=== PATIENT | female | born 1970 | race African-American/Black ===

== ENCOUNTER 2024-03-03 20:36 | Inpatient (IN) | payer SELFPAY ==
[~2024-03-03] VITALS: Ht 175.3 cm; Wt 95.3 kg
[2024-03-03 21:51] LABS: CHLORIDE 107 mEq/L (98-107); POTASSIUM 3.7 mEq/L (3.5-5.1); SODIUM 141 mEq/L (136-145)
[2024-03-03 21:52] LABS: CALCIUM 9.4 mg/dL (8.7-10.4); CARBON DIOXIDE 28 mEq/L (21-32)
[2024-03-03 21:53] LABS: BASOPHILS % 0.8 % (0.0-2.0); EOSINOPHILS % 1.5 % (0.0-5.0); HCG SCREEN NEGATIVE; HEMATOCRIT. 39.6 % (36.0-48.0); HEMOGLOBIN. 13.2 g/dL (12.0-16.0); LYMPHOCYTES % 35.8 % (20.0-50.0); MEAN CORPUSCULAR HEMOGLOBIN 30.3 pg (28.0-32.0); MEAN CORPUSCULAR HGB CONC 33.4 g/dL (31.0-37.0); MEAN CORPUSCULAR VOLUME 90.7 fL (81.0-99.0); MEAN PLATELET VOLUME 7.4 fl (7.4-10.4); MONOCYTES % 11.7 % (2.0-8.0); NEUTROPHILS % 50.2 % (40.0-76.0); PLATELET 317 x1000/uL (130-400); RED BLOOD CELL COUNT 4.37 mill/uL (4.2-5.4); RED CELL DISTRIBUTION WIDTH 14.6 % (11.6-14.6); WHITE BLOOD COUNT 4.4 x1000/uL (4.5-11.0)
[2024-03-03 21:57] LABS: GLUCOSE 94 mg/dL (70-105); UREA NITROGEN BLOOD 9 mg/dL (9-23)
[2024-03-03 21:59] LABS: TROPONIN I HIGH SENSITIVITY < 4 ng/L (3.0-34)
[2024-03-04 03:33] VITALS: BP 128/75; PULSE 62; RESP 18; TEMP 36.4736
[2024-03-04 04:00] VITALS: BP 143/81; PULSE 78; RESP 20; TEMP 36.28068; O2SAT 100
[2024-03-04] MEDS ORDERED: ONDANSETRON HCL 4MG/2ML INJ IV PRN (09:45)
[2024-03-04] MEDS ORDERED: CLONIDINE 0.1MG TABLET PO PRN (09:45)
[2024-03-04] MEDS ORDERED: IPRATROPIUM/ALBUTEROL 0.5-3(2.5)MG/3ML NEB HHN PRN (09:45)
[2024-03-04] MEDS ORDERED: ACETAMINOPHEN 325MG TABLET PO PRN (09:45)
[2024-03-04] MEDS ORDERED: DIPHENHYDRAMINE 50MG/ML VIAL IV PRN (09:45)
[2024-03-04 12:00] VITALS: BP 128/83; PULSE 70; RESP 18; TEMP 36.44736; TEMP 36.50292; O2SAT 97
[2024-03-04 16:12] VITALS: BP 122/72; PULSE 57; RESP 18; TEMP 35.72508; O2SAT 100
[2024-03-04 19:15] VITALS: BP 122/72; PULSE 68; TEMP 98; O2SAT 100
== END 2024-03-04 21:36 | disposition home or self-care (01) | DRG 204 ==
LOC: ER 20:36 → 7EST 22:39 → EDBEDREQ 22:41 → ER 03-04 01:50
PROVIDERS: ADMIT Internal Medicine; ATTEND Internal Medicine
DX: R55 Syncope and collapse (principal); F41.9 Anxiety disorder, unspecified; F43.21 Adjustment disorder with depressed mood; R20.0 Anesthesia of skin
CPT/HCPCS: 36415; 71045; 80048; 84484; 84703; 85025; 93005; 93970; 99285